=== PATIENT | female | born 1990 | race Caucasian/White ===

== ENCOUNTER 2021-08-30 12:33 | Emergency (ER) | payer BC ==
[~2021-08-30 12:33] MED LIST: IBUPROFEN600 MG PO; IMODIUM CAP 2 MG2 MG PO; KEFLEX CAP 500500 MG PO; ONDANSETRON ODT4 MG PO
[2021-08-30 13:32] LABS: HEMOGLOBIN 14.8 gm/dl (12.3-15.3); RED BLOOD COUNT 4.94 M/UL (4.00-5.10); WHITE BLOOD COUNT 8.6 K/UL (4.5-11.0)
[2021-08-30 14:03] LABS: BUN/CREATININE RATIO 28 (0-10)
== END 2021-08-30 15:48 | disposition home or self-care (01) ==
LOC: ER1 12:33
PROVIDERS: Physician Assistant
DX: R42 Dizziness and giddiness (principal); U09.9 Post COVID-19 condition, unspecified
CPT/HCPCS: 70450; 71045; 80053; 81001; 82550; 82553; 83874; 84439; 84443; 84484; 84703; 85025; 87086; 93005; 99284